=== PATIENT | female | born 1990 | race Caucasian/White ===

== ENCOUNTER 2016-11-13 19:57 | Emergency (ER) | payer SELFPAY ==
[~2016-11-13] VITALS: Ht 154.9 cm; Wt 59.1 kg
[2016-11-13 20:00] VITALS: BP 140/91
== END 2016-11-13 22:00 | disposition left against medical advice (07) ==
LOC: ER 20:00
DX: Z53.21 Procedure and treatment not carried out due to patient leaving prior to being seen by health care provider (principal)